=== PATIENT | male | born 1965 | race Caucasian/White ===

== ENCOUNTER 2020-04-03 14:56 | Emergency (ER) | payer OTHER, SELFPAY ==
[2020-04-03 14:58] VITALS: BP 153/111; PULSE 101; RESP 18; TEMP 35.9; O2SAT 99; BMI 29.5
--- NOTE | 2020-04-03 15:09 | ED.DCSUM_ITS ---
History of Present Illness Chief Complaint: Chest Pain Informant: Patient Onset: Today Narrative: Patient is a 55-year-old male with a past medical history of GERD, hypertension who presents to the emergency department for epigastric pain. He states that it started around 8:30 AM this morning. He has had similar symptoms but never to this severity. He states that it was getting up to a 9 out of 10. He tried taking Pepto-Bismol for it and it made his symptoms worse. On the drive to the emergency department his symptoms have started to alleviate at this time. No radiation of the pain into his back arms or neck. Denies any leg swelling or calf pain. No personal history of CAD. His dad does have a history of CAD with stents. He is a non-smoker. He did have a couple episodes of dry heaving. He states he felt like he needed to belch or pass gas and would think that this would help but was never able to. He did feel distention in his abdomen. No previous abdominal surgeries. He denies any cough or fever/chills. No shortness of breath. 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 Past Medical History - Allergies and Home Meds Allergies/Adverse Reactions: Allergies No Known Allergies Allergy (Verified 04/03/20 15:00) Primary Care Physician: NOT,DEFINED [NON-STAFF] - 2 Days Prior records reviewed: Yes Past Medical History: - Surgical History: noncontributory Review of Systems All systems negative except as indicated General: Denies: Chills, Fever, Sweats Eyes: Denies: Visual changes - bilaterally, Diplopia ENT: Denies: Rhinorrhea, Sore throat Cardiovascular: Denies: Chest pain, Palpitations Respiratory: Denies: Dyspnea, Cough, Dyspnea on exertion Gastrointestinal: Reports: Abdominal pain - Epigastric. Denies: Nausea, Vomiting, Diarrhea Genitourinary: Denies: Dysuria, Hematuria, Frequency Musculoskeletal: Denies: Back pain, Extremity Pain Skin: Denies: Rash, Wounds Neurological: Denies: Headache, Weakness, Numbness Physical Exam Vital Signs/Narrative: Vital Signs Temp Pulse Resp BP Pulse Ox 04/03/20 14:58 96.6 F L 101 H 18 153/111 H 99 Inital Vital Signs reviewed: Yes General: Well nourished, Well developed, No Acute Distress Head: Normocephalic, Atraumatic Eyes: Perrl, EOMI ENT: Moist mucous membranes, No rhinorrhea Neck: Supple, Nontender Cardiovascular: Regular rate, Regular rhythm, No murmurs Respiratory: No distress, CTA bilaterally, Chest nontender Abdomen: Soft, Nondistended, Normal bowel sounds, Tender - Epigastrium Back: Nontender, Normal Inspection Extremities: Nontender, No edema. Negative for: Calf Tenderness Skin: Normal color, No rash Neurological: Alert, Oriented x3, Cranial nerves II-XII grossly intact, Normal Strength, Normal Sensation Psychological: Normal affect, Normal Mood Diagnostic/Tx/Re-eval - EKG Initial EKG Interpretation: - - Rate of 92 beats minute and normal sinus rhythm. Normal intervals. Normal axis. No significant ST elevations or depressions. T wave inversion in lead III otherwise no T wave abnormality. - Medical Decision Making Patient presents emerged part for epigastric abdominal pain. He was concerned that he was having a cardiac event. Upon arrival to the ED his symptoms have started to alleviate. He did take 4 aspirin prior to coming in. Besides mild hypertension vital signs within normal limits. He does not appear in any acute distress. Will check EKG, chest x-ray and basic lab work. Will trial a GI cocktail. Patient's lab work does not reveal an elevated white blood cell count. He is not anemic. No acute electrolyte disturbance. His lipase within normal limits. No elevation of liver enzymes. On reexamination he states that the GI cocktail did help a lot but then his symptoms started to return. I did offer to do a CT scan as he still having persistent symptoms. Patient refusing as he does not want the radiation exposure at this time. He states he wants to trial medication therapy and will come back if his symptoms worsen. Not feel patient needs repeat troponin as most of his symptoms are abdominal and have been going on for multiple hours from this morning. No concern for PE as PERC score is negative and no shortness of breath without any significant chest pain as it seems all epigastric. Low concern for dissection as the vital signs within normal limits and is not tearing pain. No radiation to his back. He does feel comfortable going home at this time. Will recommend he doubles his dose of om eprazole from 20 mg to 40 mg. We will also write a prescription for Carafate. He is to follow-up with his PCP otherwise. Warning signs and symptoms which to return to the ED were reviewed with him. He understands and is agreeable this plan. All questions were answered. ED Disposition - Plan for ED Patient: Disposition: Home or Assisted Living Diagnosis: Epigastric abdominal pain Instructions: ED Epigastric Pain (Uncertain Cause) Prescriptions: Sucralfate [Carafate] 1 gm PO 4X/DAY 5 Days #20 tab Prescription Printed Referrals: NOT,DEFINED [NON-STAFF] - 2 Days
[2020-04-03] MEDS: Mag Hydrox/Al Hydrox/Simeth 30 ML UDC PO (15:14)
[2020-04-03 15:17] VITALS: BP 163/94; PULSE 88; RESP 16; O2SAT 100
[2020-04-03 15:44] LABS: Absolute Lymphocyte Count 1.97 X10^3/uL (0.83-4.51); Absolute Neutrophil Count 7.8 X10^3/uL (2.0-7.7); Basophil# 0.02 X10^3/uL; Basophil% 0.2 % (0-1); Eosinophil# 0.12 X10^3/uL; Eosinophils% 1.1 % (0-5); Hematocrit 49.1 % (40-54); Lymphocyte # 1.97 X10^3/ul (4.0); Lymphocyte % 18.7 % (19-41); Mean Corp Hgb Conc 32.6 g/dL (32-36); Mean Corpuscular Hgb 29.3 pg (27.0-32.0); Mean Corpuscular Volume 89.8 fL (80-94); Mean Platelet Vol. 9.1 fl (6.2-12.0); Monocyte# 0.55 X10^3/uL; Monocyte% 5.2 % (0-10); NRBC Flagged by Analyzer 0 % (0-5); Neutrophil # 7.82 X10^3/uL (2.7-7.7); Neutrophil % 74.3 % (47-70); Platelet Count 219 K/mm3 (150-450); RBC Distribution Width CV 12.8 % (11.6-14.6); RBC Distribution Width SD 42.1 fl (35.1-43.9); Red Blood Count 5.47 M/mm3 (4.6-6.2); White Blood Count 10.5 K/mm3 (4.4-11.0)
--- NOTE | 2020-04-03 15:45 | RAD_ITS ---
STUDY: X-RAY CHEST REASON FOR EXAM: Male, 55 years old. Epigastric pain that radiates into chest TECHNIQUE: Single AP portable view of the chest. COMPARISON: None. FINDINGS: EKG electrodes are seen. The lungs are clear and expanded. There is no demonstrated pleural abnormality. Normal size heart. Normal mediastinum and alessandro. Normal visualized pulmonary arteries. Normal visualized aortic arch and descending thoracic aorta. There are diffuse degenerative changes of the visualized thoracic spine. Normal visualized ribs, clavicles, and shoulders. There is no demonstrated abnormality of the visualized soft tissue structures of the upper abdomen. RAD/Chest 1 View (Portable) IMPRESSION: Normal x-ray examination of the chest. Electronically Signed: River Sewell, at 15:59 EST , Service support ,
[2020-04-03 16:05] LABS: AST(SGOT) 20 U/L (15-37); Alanine Aminotransfer ALT/SGPT 39 U/L (16-61); Albumin, Serum 3.9 g/dL (3.2-5.0); Alkaline Phosphatase 80 U/L (45-117); Anion Gap 5 (5-15); BUN 22 mg/dL (7-18); Bilirubin, Direct 0.14 mg/dL (0.00-0.30); Calcium,Total 8.9 mg/dL (8.5-10.1); Chloride 108 mmol/L (98-107); Creatinine, Serum 1.16 mg/dL (0.70-1.30); EST Glomerular Filtration Rate 69 mL/min (>60); Est Glom Filt Rate - Afr Amer 84 mL/min (>60); Estimated Creatinine Clearance 71.95 ml/min; Globulin 3.4 g/dL (2.2-4.2); Glucose 110 mg/dL (74-106); Lipase 174 U/L (73-393); Potassium 3.9 mmol/L (3.5-5.1); Protein, Total 7.3 g/dL (6.4-8.2); Sodium Level 139 mmol/L (136-145)
[2020-04-03 16:31] VITALS: BP 146/97; PULSE 77; RESP 16; O2SAT 100
[2020-04-03 16:32] VITALS: BP 146/97; PULSE 77; RESP 116; O2SAT 100
== END 2020-04-03 16:45 | disposition home or self-care (01) ==
PROVIDERS: Emergency Provider Emergency Medicine; PCP Radiologic Technologist Bone Densitometry
DX: R10.13 Epigastric pain (principal); I10 Essential (primary) hypertension; K21.9 Gastro-esophageal reflux disease without esophagitis; Z82.49 Family history of ischemic heart disease and other diseases of the circulatory system
CPT/HCPCS: 71045; 80048; 80076; 83690; 84484; 85025; 93005; 99285; A4216